=== PATIENT | male | born 1930 | race Caucasian/White ===

== ENCOUNTER 2018-02-04 09:35 | Emergency (ER) | payer OTHER ==
[~2018-02-04] VITALS: Ht 177.8 cm; Wt 80.9 kg
[2018-02-04 10:05] LABS: BASOPHIL (%) 0.4 % (0-1); EOSINOPHIL (%) 3.4 % (0-5); EOSINOPHIL COUNT 0.2 K/uL (0-0.3); HEMATOCRIT 38.4 % (38.0-50.0); HEMOGLOBIN 13.1 G/DL (12.5-16.6); IMMATURE GRANULOCYTE (%) 0.2 % (0.0-0.7); LYMPHOCYTE (%) 23.1 % (15-42); LYMPHOCYTE COUNT 1.2 K/uL (1.0-2.8); MCH 29.6 PG (29.0-34.0); MCHC 34.1 G/DL (30.0-36.0); MCV 86.9 FL (86-99); MONOCYTE (%) 8.7 % (3-12); MONOCYTE COUNT 0.4 K/uL (0-0.8); NEUTROPHIL (%) 64.2 % (45-76); NEUTROPHIL COUNT 3.2 K/uL (1.8-6.4); PLATELET COUNT 158 K/uL (156-360); RBC DIS.WIDTH-CV 14.4 % (11.8-14.6); RBC DIS.WIDTH-SD 46.2 % (39-53); RED BLOOD COUNT 4.42 M/uL (4.00-5.50)
[2018-02-04 10:16] LABS: CHLORIDE 103 mEq/L (99-109); POTASSIUM 5.3 mEq/L (3.7-5.4); SODIUM 137 mEq/L (136-147)
[2018-02-04 10:18] LABS: GLUCOSE 106 mg/dL (70-99)
[2018-02-04 10:22] LABS: CREATININE 1.5 mg/dL (0.6-1.3); GFR ESTIMATE (CALCULATED) 47 mL/min/ (58.99-99999)
[2018-02-04 10:23] LABS: UREA NITROGEN (BUN) 31 mg/dL (9-23)
[2018-02-04 14:17] VITALS: BP 124/68
== END 2018-02-04 14:21 | disposition home or self-care (01) ==
LOC: EME 09:35
PROVIDERS: Emergency Medicine
DX: K40.90 Unilateral inguinal hernia, without obstruction or gangrene, not specified as recurrent (principal); I10 Essential (primary) hypertension; E78.5 Hyperlipidemia, unspecified; Z85.038 Personal history of other malignant neoplasm of large intestine; Z93.3 Colostomy status
CPT/HCPCS: 74019; 74022; 74176; 80048; 85025; 99281; 99285

== ENCOUNTER 2018-02-07 18:25 | Inpatient (IN) | payer OTHER ==
[~2018-02-07] VITALS: Ht 175.3 cm; Wt 86.0 kg
[2018-02-07 19:47] LABS: HEMATOCRIT 45.2 % (38.0-50.0); HEMOGLOBIN 15.5 G/DL (12.5-16.6); MCH 29.8 PG (29.0-34.0); MCHC 34.3 G/DL (30.0-36.0); MCV 86.8 FL (86-99); PLATELET COUNT 204 K/uL (156-360); RBC DIS.WIDTH-CV 14.5 % (11.8-14.6); RBC DIS.WIDTH-SD 46.1 % (39-53); RED BLOOD COUNT 5.21 M/uL (4.00-5.50); WHITE BLOOD COUNT 2.3 K/uL (4.1-10.2)
[2018-02-07 19:53] LABS: ALBUMIN 4.8 g/dL (3.2-4.8)
[2018-02-07 19:54] LABS: CHLORIDE 102 mEq/L (99-109); POTASSIUM 4.6 mEq/L (3.7-5.4); SODIUM 143 mEq/L (136-147)
[2018-02-07 19:56] LABS: GLUCOSE 162 mg/dL (70-99)
[2018-02-07 19:58] LABS: TOTAL BILIRUBIN 1.6 mg/dL (0.0-1.0)
[2018-02-07 19:59] LABS: ALKALINE PHOSPHATASE 86 IU/L (3-129)
[2018-02-07 20:00] LABS: CREATININE 1.6 mg/dL (0.6-1.3); GFR ESTIMATE (CALCULATED) 44 mL/min/ (58.99-99999)
[2018-02-07 20:01] LABS: AST (GOT) 25 IU/L (2-34)
[2018-02-07 20:03] LABS: ALT (GPT) 30 IU/L (3-49); UREA NITROGEN (BUN) 48 mg/dL (9-23)
[2018-02-07] MEDS ORDERED: METOPROLOL TART25 MG PO (22:01)
[2018-02-07] MEDS ORDERED: LISINOPRIL-HCT1 EAC3 PO (22:02)
[2018-02-07] MEDS ORDERED: ADULT ASPIRIN R81 MG PO (22:02)
[2018-02-07] MEDS ORDERED: ATORVASTATIN CA10 MG PO (22:02)
[2018-02-07] MEDS ORDERED: CENTRUM SILVER1 EAC3 PO (22:02)
[2018-02-07 23:20] LABS: CARBON DIOXIDE (BICARBONATE) 27.9 MEQ/L (20-31)
[2018-02-07 23:28] LABS: MAGNESIUM 2.4 mg/dL (1.3-2.7)
[2018-02-07 23:32] LABS: PHOSPHORUS 4.5 mg/dL (2.5-4.9)
[2018-02-08] VITALS (20 sets, daily range): BP systolic 70–134; BP diastolic 37–82
[2018-02-08 01:35] LABS: TROP-I INTERPRETATION NEGATIVE; TROPONIN-I 0.21 ng/mL (0.0-0.30)
[2018-02-08 03:03] LABS: HEMATOCRIT 42.7 % (38.0-50.0); HEMOGLOBIN 14.6 G/DL (12.5-16.6); MCH 29.2 PG (29.0-34.0); MCHC 34.2 G/DL (30.0-36.0); MCV 85.4 FL (86-99); NRBC (%) 1.3 /100 WBC (0-0); PLATELET COUNT 216 K/uL (156-360); RBC DIS.WIDTH-CV 14.5 % (11.8-14.6)
[2018-02-08 03:04] LABS: WHITE BLOOD COUNT 1.6 K/uL (4.1-10.2)
[2018-02-08 03:08] LABS: ALBUMIN 4.1 g/dL (3.2-4.8); CHLORIDE 102 mEq/L (99-109); POTASSIUM 3.7 mEq/L (3.7-5.4); SODIUM 142 mEq/L (136-147)
[2018-02-08 03:10] LABS: GLUCOSE 152 mg/dL (70-99); TOTAL PROTEIN 6.9 g/dL (6.4-8.3)
[2018-02-08 03:11] LABS: APPEARANCE CLEAR ((CLEAR)); BILIRUBIN NEGATIVE; BLOOD NEGATIVE; COLOR AMBER ((YELLOW)); GLUCOSE (STRIP) NEGATIVE; KETONES 5; LEUKOCYTES NEGATIVE; NITRITE NEGATIVE; PROTEIN (STRIP) NEGATIVE; SPECIFIC GRAVITY 1.026 (1.000-1.030); UCUL ADDED? NO
[2018-02-08 03:12] LABS: TOTAL BILIRUBIN 1.4 mg/dL (0.0-1.0)
[2018-02-08 03:14] LABS: ALKALINE PHOSPHATASE 70 IU/L (3-129); GFR ESTIMATE (CALCULATED) 34 mL/min/ (58.99-99999)
[2018-02-08 03:15] LABS: UREA NITROGEN (BUN) 53 mg/dL (9-23)
[2018-02-08 03:16] LABS: AST (GOT) 21 IU/L (2-34)
[2018-02-08 03:17] LABS: ALT (GPT) 25 IU/L (3-49); INTER. NORMALIZED RATIO 1.3
[2018-02-08 03:20] LABS: PTT 21.9 SEC (25-37)
[2018-02-08 03:23] LABS: TROP-I INTERPRETATION NEGATIVE; TROPONIN-I 0.29 ng/mL (0.0-0.30)
[2018-02-08 04:13] LABS: ABS NEUTROPHIL COUNT 0.8; ANISOCYTOSIS 1+; EOSINOPHIL ABS CT 0; OVALOCYTES 1+; PLAT.SUFFICIENCY ADEQUATE
[2018-02-08 06:14] LABS: ABS NEUTROPHIL COUNT 0.6; EOSINOPHIL ABS CT 0; OVALOCYTES 1+; PLAT.SUFFICIENCY ADEQUATE
[2018-02-08 10:21] LABS: HEMOGLOBIN A1c (GLYCOHEMOGLOB) 5.5 % (Below 5.7)
[2018-02-08 18:36] LABS: HEMATOCRIT 35.1 % (38.0-50.0); MCH 28.8 PG (29.0-34.0); MCHC 33.3 G/DL (30.0-36.0); MCV 86.5 FL (86-99); PLATELET COUNT 174 K/uL (156-360); RBC DIS.WIDTH-CV 14.6 % (11.8-14.6); RBC DIS.WIDTH-SD 46.5 % (39-53); RED BLOOD COUNT 4.06 M/uL (4.00-5.50); WHITE BLOOD COUNT 2.1 K/uL (4.1-10.2)
[2018-02-08 18:38] LABS: HEMOGLOBIN 11.7 G/DL (12.5-16.6)
[2018-02-08 18:43] LABS: CHLORIDE 105 MEQ/L (99-109); MAGNESIUM 1.6 mg/dl (1.3-2.7); POTASSIUM 3.9 MEQ/L (3.7-5.4); SODIUM 139 MEQ/L (136-147)
[2018-02-08 18:49] LABS: GFR ESTIMATE (CALCULATED) 51 mL/min/ (58.99-99999); PHOSPHORUS 3.5 mg/dL (2.5-4.9); UREA NITROGEN (BUN) 47 mg/dL (9-23)
[2018-02-08 18:50] LABS: CREATININE 1.4 MG/DL (0.6-1.3); GLUCOSE 110 mg/dL (70-99)
[2018-02-09] VITALS (20 sets, daily range): BP systolic 68–169; BP diastolic 52–88
[2018-02-09 05:10] LABS: HEMATOCRIT 38.4 % (38.0-50.0); HEMOGLOBIN 12.5 G/DL (12.5-16.6); MCH 28.6 PG (29.0-34.0); MCHC 32.6 G/DL (30.0-36.0); MCV 87.9 FL (86-99); PLATELET COUNT 172 K/uL (156-360); RBC DIS.WIDTH-CV 14.6 % (11.8-14.6); RBC DIS.WIDTH-SD 47.1 % (39-53); RED BLOOD COUNT 4.37 M/uL (4.00-5.50); WHITE BLOOD COUNT 3.6 K/uL (4.1-10.2)
[2018-02-09 05:37] LABS: CHLORIDE 106 MEQ/L (99-109); CREATININE 1.4 MG/DL (0.6-1.3); GFR ESTIMATE (CALCULATED) 51 mL/min/ (58.99-99999); GLUCOSE 98 mg/dL (70-99); MAGNESIUM 1.8 mg/dl (1.3-2.7); POTASSIUM 4.2 MEQ/L (3.7-5.4); SODIUM 137 MEQ/L (136-147); UREA NITROGEN (BUN) 47 mg/dL (9-23)
[2018-02-10] VITALS (18 sets, daily range): BP systolic 89–138; BP diastolic 45–87
[2018-02-10 05:35] LABS: HEMATOCRIT 36.1 % (38.0-50.0); HEMOGLOBIN 12.1 G/DL (12.5-16.6); MCH 28.7 PG (29.0-34.0); MCHC 33.5 G/DL (30.0-36.0); MCV 85.5 FL (86-99); PLATELET COUNT 169 K/uL (156-360); RBC DIS.WIDTH-CV 14.6 % (11.8-14.6); RBC DIS.WIDTH-SD 45.5 % (39-53); RED BLOOD COUNT 4.22 M/uL (4.00-5.50); WHITE BLOOD COUNT 5.6 K/uL (4.1-10.2)
[2018-02-10 07:25] LABS: ALBUMIN 2.4 G/DL (3.2-4.8); ALKALINE PHOSPHATASE 48 IU/L (3-129); ALT (GPT) 20 IU/L (3-49); AST (GOT) 28 IU/L (2-34); CHLORIDE 106 MEQ/L (99-109); CREATININE 1.2 MG/DL (0.6-1.3); GFR ESTIMATE (CALCULATED) > 59 mL/min/ (58.99-99999); GLUCOSE 91 mg/dL (70-99); SODIUM 142 MEQ/L (136-147); TOTAL BILIRUBIN 0.7 MG/DL (0.0-1.0); TOTAL PROTEIN 4.2 G/DL (6.4-8.3); UREA NITROGEN (BUN) 38 mg/dL (9-23)
[2018-02-10 07:26] LABS: POTASSIUM 3.2 MEQ/L (3.7-5.4)
[2018-02-11] VITALS: BP 138/74
[2018-02-11 03:00] VITALS: BP 125/67
[2018-02-11 07:00] VITALS: BP 140/67
[2018-02-11 07:14] LABS: HEMATOCRIT 33.2 % (38.0-50.0); HEMOGLOBIN 11.3 G/DL (12.5-16.6); MCV 85.3 FL (86-99); PLATELET COUNT 132 K/uL (156-360); RBC DIS.WIDTH-CV 14.8 % (11.8-14.6); RBC DIS.WIDTH-SD 46.5 % (39-53); RED BLOOD COUNT 3.89 M/uL (4.00-5.50); WHITE BLOOD COUNT 6.2 K/uL (4.1-10.2)
[2018-02-11 07:18] LABS: INTER. NORMALIZED RATIO 1.2
[2018-02-11 07:21] LABS: PTT 51.8 SEC (25-37)
[2018-02-11 07:54] LABS: CHLORIDE 111 MEQ/L (99-109); CREATININE 1.1 MG/DL (0.6-1.3); GFR ESTIMATE (CALCULATED) > 59 mL/min/ (58.99-99999); GLUCOSE 96 mg/dL (70-99); POTASSIUM 3.6 MEQ/L (3.7-5.4); SODIUM 145 MEQ/L (136-147); UREA NITROGEN (BUN) 38 mg/dL (9-23)
[2018-02-11 07:55] LABS: MAGNESIUM 2.3 mg/dl (1.3-2.7)
[2018-02-11 19:00] VITALS: BP 105/72
[2018-02-12] VITALS (16 sets, daily range): BP systolic 109–159; BP diastolic 48–88
[2018-02-12 05:31] LABS: HEMATOCRIT 34.6 % (38.0-50.0); HEMOGLOBIN 11.6 G/DL (12.5-16.6); MCH 28.9 PG (29.0-34.0); MCHC 33.5 G/DL (30.0-36.0); MCV 86.3 FL (86-99); PLATELET COUNT 139 K/uL (156-360); RBC DIS.WIDTH-CV 15.1 % (11.8-14.6); RED BLOOD COUNT 4.01 M/uL (4.00-5.50); WHITE BLOOD COUNT 6.9 K/uL (4.1-10.2)
[2018-02-12 06:10] LABS: CHLORIDE 110 MEQ/L (99-109); CREATININE 1.1 MG/DL (0.6-1.3); GFR ESTIMATE (CALCULATED) > 59 mL/min/ (58.99-99999); GLUCOSE 70 mg/dL (70-99); PHOSPHORUS 2.1 mg/dL (2.5-4.9); POTASSIUM 3.9 MEQ/L (3.7-5.4); SODIUM 146 MEQ/L (136-147); UREA NITROGEN (BUN) 34 mg/dL (9-23)
[2018-02-12 14:46] LABS: Heparin Induced Plt Ab Negative (Negative)
[2018-02-13] VITALS (22 sets, daily range): BP systolic 116–172; BP diastolic 57–98
[2018-02-13 05:33] LABS: HEMATOCRIT 34.8 % (38.0-50.0); HEMOGLOBIN 11.7 G/DL (12.5-16.6); MCH 28.8 PG (29.0-34.0); MCHC 33.6 G/DL (30.0-36.0); MCV 85.7 FL (86-99); PLATELET COUNT 141 K/uL (156-360); RBC DIS.WIDTH-CV 15.4 % (11.8-14.6); RBC DIS.WIDTH-SD 48.3 % (39-53); RED BLOOD COUNT 4.06 M/uL (4.00-5.50); WHITE BLOOD COUNT 8.2 K/uL (4.1-10.2)
[2018-02-13 05:53] LABS: CHLORIDE 108 MEQ/L (99-109); GFR ESTIMATE (CALCULATED) > 59 mL/min/ (58.99-99999); GLUCOSE 71 mg/dL (70-99); MAGNESIUM 1.8 mg/dl (1.3-2.7); POTASSIUM 4.1 MEQ/L (3.7-5.4); SODIUM 144 MEQ/L (136-147); UREA NITROGEN (BUN) 29 mg/dL (9-23)
[2018-02-13 05:56] LABS: PHOSPHORUS 3.4 mg/dL (2.5-4.9)
[2018-02-14] VITALS (17 sets, daily range): BP systolic 104–135; BP diastolic 55–97
[2018-02-14 05:35] LABS: HEMATOCRIT 33.6 % (38.0-50.0); MCH 28.1 PG (29.0-34.0); MCHC 32.7 G/DL (30.0-36.0); MCV 85.9 FL (86-99); PLATELET COUNT 154 K/uL (156-360); RBC DIS.WIDTH-CV 15.3 % (11.8-14.6); RED BLOOD COUNT 3.91 M/uL (4.00-5.50); WHITE BLOOD COUNT 11.7 K/uL (4.1-10.2)
[2018-02-14 06:00] LABS: CHLORIDE 107 MEQ/L (99-109); CREATININE 1.1 MG/DL (0.6-1.3); GFR ESTIMATE (CALCULATED) > 59 mL/min/ (58.99-99999); MAGNESIUM 1.7 mg/dl (1.3-2.7); PHOSPHORUS 2.8 mg/dL (2.5-4.9); POTASSIUM 3.8 MEQ/L (3.7-5.4); SODIUM 144 MEQ/L (136-147); UREA NITROGEN (BUN) 22 mg/dL (9-23)
[2018-02-14 06:02] LABS: GLUCOSE 98 mg/dL (70-99)
[2018-02-14 17:02] LABS: UFH SRA Result Indeterminate (Negative)
[2018-02-15 01:07] VITALS: BP 129/72
[2018-02-15 04:19] VITALS: BP 136/63
[2018-02-15 06:44] LABS: HEMATOCRIT 35.7 % (38.0-50.0); HEMOGLOBIN 11.8 G/DL (12.5-16.6); MCHC 33.1 G/DL (30.0-36.0); MCV 87.7 FL (86-99); PLATELET COUNT 149 K/uL (156-360); RBC DIS.WIDTH-CV 15.3 % (11.8-14.6); RBC DIS.WIDTH-SD 49.3 % (39-53); RED BLOOD COUNT 4.07 M/uL (4.00-5.50); WHITE BLOOD COUNT 8.1 K/uL (4.1-10.2)
[2018-02-15 07:08] LABS: CHLORIDE 108 MEQ/L (99-109); CREATININE 0.9 MG/DL (0.6-1.3); GFR ESTIMATE (CALCULATED) > 59 mL/min/ (58.99-99999); GLUCOSE 93 mg/dL (70-99); POTASSIUM 3.8 MEQ/L (3.7-5.4); SODIUM 144 MEQ/L (136-147); UREA NITROGEN (BUN) 17 mg/dL (9-23)
[2018-02-15 08:01] VITALS: BP 169/73
[2018-02-15 12:06] VITALS: BP 173/74
[2018-02-15 16:48] VITALS: BP 132/65
[2018-02-15 19:24] VITALS: BP 112/54
[2018-02-16 00:56] VITALS: BP 132/70
[2018-02-16 03:57] VITALS: BP 131/81
[2018-02-16 05:52] LABS: HEMATOCRIT 34.1 % (38.0-50.0); HEMOGLOBIN 11.2 G/DL (12.5-16.6); MCH 28.6 PG (29.0-34.0); MCHC 32.8 G/DL (30.0-36.0); MCV 87.2 FL (86-99); PLATELET COUNT 182 K/uL (156-360); RBC DIS.WIDTH-CV 15.2 % (11.8-14.6); RBC DIS.WIDTH-SD 48.9 % (39-53); RED BLOOD COUNT 3.91 M/uL (4.00-5.50); WHITE BLOOD COUNT 7.2 K/uL (4.1-10.2)
[2018-02-16 06:19] LABS: CHLORIDE 108 MEQ/L (99-109); CREATININE 0.8 MG/DL (0.6-1.3); GFR ESTIMATE (CALCULATED) > 59 mL/min/ (58.99-99999); GLUCOSE 91 mg/dL (70-99); POTASSIUM 3.5 MEQ/L (3.7-5.4); SODIUM 144 MEQ/L (136-147); UREA NITROGEN (BUN) 16 mg/dL (9-23)
[2018-02-16 08:15] VITALS: BP 112/78
[2018-02-16 11:57] VITALS: BP 125/74
[2018-02-16 16:34] VITALS: BP 128/71
[2018-02-16] MEDS ORDERED: LOPRESSOR50 MG PO (17:12)
[2018-02-16] MEDS ORDERED: ELIQUIS5 MG PO (17:12)
[2018-02-16] MEDS ORDERED: LISINOPRIL10 MG PO (17:12)
[2018-02-16] MEDS ORDERED: PACERONE200 MG PO (17:12)
[2018-02-16 20:13] VITALS: BP 156/72
[2018-02-17 00:04] VITALS: BP 129/60
== END 2018-02-17 01:11 | DRG 853 ==
LOC: EME 18:25 → EXP 18:25 → 4WEST 22:56 → EDOF 22:56 → ENRESERV 23:02 → 2EAST 02-08 01:39 → ENRESERV 02-08 02:41 → 4WEST 02-08 02:53 → ENRESERV 02-08 17:15 → 4WEST 02-08 19:09 → ENRESERV 02-14 13:25 → 5EAST 02-14 19:42
PROVIDERS: Hospitalist; Internal Medicine Critical Care Medicine; Internal Medicine Pulmonary Disease; Physician Assistant Medical; Surgery
PROC: 0YU50JZ Supplement Right Inguinal Region with Synthetic Substitute, Open Approach (ICD-10-PCS; principal; 2018-02-08)
PROC: 02HV33Z Insertion of Infusion Device into Superior Vena Cava, Percutaneous Approach (ICD-10-PCS; 2018-02-10)
DX: A41.9 Sepsis, unspecified organism (principal); R65.21 Severe sepsis with septic shock; K40.30 Unilateral inguinal hernia, with obstruction, without gangrene, not specified as recurrent; K56.7 Ileus, unspecified; E87.2 Acidosis; E86.0 Dehydration; D70.9 Neutropenia, unspecified; N17.9 Acute kidney failure, unspecified; I48.0 Paroxysmal atrial fibrillation; E87.70 Fluid overload, unspecified; D69.6 Thrombocytopenia, unspecified; D64.9 Anemia, unspecified; E87.6 Hypokalemia; R73.9 Hyperglycemia, unspecified; I12.9 Hypertensive chronic kidney disease with stage 1 through stage 4 chronic kidney disease, or unspecified chronic kidney disease; N18.3 Chronic kidney disease, stage 3 (moderate); I08.0 Rheumatic disorders of both mitral and aortic valves; E78.5 Hyperlipidemia, unspecified; Z79.82 Long term (current) use of aspirin; Z85.048 Personal history of other malignant neoplasm of rectum, rectosigmoid junction, and anus; Z93.3 Colostomy status; Z92.21 Personal history of antineoplastic chemotherapy; Z92.3 Personal history of irradiation
CPT/HCPCS: 71045; 74018; 74019; 74022; 74176; 74177; 80048; 80048 91; 80053; 81003; 82533 91; 82803; 82948; 83036; 83605; 83735; 83880; 84100; 84145 90; 84484; 85025; 85027; 85610; 85730; 86022 90; 86850; 86900; 86901; 86920; 87040; 87086; 87641; 93005; 93306; 94002; 94760; 94799; 97530 GO; 97530 GP; 99281; 99285; A6214; C1751; C9113; J0690; J1160; J1644; J1650; J1940; J2370; J2405; J2543; J2704; J2710; J2765; J3010; J3475; J3480; J7040; J7050; J7120; P9045; S0020